=== PATIENT | female | born 1995 | race Caucasian/White ===

== ENCOUNTER 2019-12-14 07:01 | Inpatient (IN) | payer MEDICAID ==
[~2019-12-14] VITALS: Ht 177.8 cm; Wt 104.3 kg
[2019-12-14] MEDS ORDERED: DEXT 5%/LACTATED RINGERS 1,000 ML IV SCH (11:47)
[2019-12-14] MEDS ORDERED: DEXT 5%/LR + PITOCIN 20UNITS/L 1,000 ML IV SCH ×2 (11:47→22:49)
[2019-12-14] MEDS ORDERED: MINERAL OIL 30ML BOTTLE PO NR (12:00)
[2019-12-14] MEDS ORDERED: PENICILLIN G POTASSIUM 5 MMU in DEXT 5% WATER 100 ML IV NR (12:00)
[2019-12-14] MEDS ORDERED: NALOXONE HCL 0.4 MG/ML 1ML VIAL IM PRN (12:00)
[2019-12-14] MEDS ORDERED: RHO(D) IMMUNE GLOBULIN 300 MCG/SYR IM NR (12:00)
[2019-12-14] MEDS ORDERED: METHYLERGONOVINE MALEATE 0.2 MG/ML IM PRN (12:00)
[2019-12-14] MEDS ORDERED: LIDOCAINE HCL 1% 20ML VIAL (Pyxis) INJ INFIL SCH (12:00)
[2019-12-14] MEDS ORDERED: BUTORPHANOL TARTRATE 2 MG/ML VIAL IV PRN (12:00)
[2019-12-14 12:24] LABS: BASOPHILS % 0.5 % (0.0-2.0); HEMATOCRIT. 31.3 % (36.0-48.0); HEMOGLOBIN. 10.6 g/dL (12.0-16.0); LYMPHOCYTES % 20.6 % (20.0-50.0); MEAN CORPUSCULAR HEMOGLOBIN 27.6 pg (28.0-32.0); MEAN CORPUSCULAR VOLUME 81.3 fL (81.0-99.0); MEAN PLATELET VOLUME 8.6 fl (7.4-10.4); MONOCYTES % 6.3 % (2.0-8.0); NEUTROPHILS % 70.6 % (40.0-76.0); PLATELET 262 x1000/uL (130-400); RED BLOOD CELL COUNT 3.85 mill/uL (4.2-5.4); RED CELL DISTRIBUTION WIDTH 18.7 % (11.6-14.6)
[2019-12-14 12:26] LABS: CLARITY URINE CLEAR (CLEAR); COLOR URINE YELLOW (YELLOW); KETONES URINE NEGATIVE (NEGATIVE); LEUKOCYTE ESTERASE URINE 1+ (NEGATIVE); NITRITE URINE NEGATIVE (NEGATIVE); OCCULT BLOOD URINE NEGATIVE (NEGATIVE); PROTEIN URINE NEGATIVE (NEGATIVE); SPECIFIC GRAVITY URINE 1.008 (1.005-1.030); UROBILINOGEN URINE 0.2 E.U./dL (0.2-1.0)
[2019-12-14 12:35] LABS: INR 0.9; PARTIAL THROMBOPLASTIN TIME 26.2 sec (23.4-31.0); PROTHROMBIN TIME 9.4 sec (9.6-11.0)
[2019-12-14 12:46] LABS: METHADONE URINE SCREEN NEGATIVE (NEGATIVE); OPIATES URINE SCREEN NEGATIVE (NEGATIVE); PHENCYCLIDINE URINE SCREEN NEGATIVE (NEGATIVE)
[2019-12-14 12:47] LABS: *AMPHETAMINES SCREEN URINE NEGATIVE (NEGATIVE); *BARBITURATES SCREEN URINE NEGATIVE (NEGATIVE); *COCAINE SCREEN URINE NEGATIVE (NEGATIVE); CANNABINOID URINE SCREEN NEGATIVE (NEGATIVE)
[2019-12-14 12:49] LABS: *BENZODIAZEPINES SCREEN URINE NEGATIVE (NEGATIVE)
[2019-12-14 13:20] LABS: HEPATITIS B SURFACE ANTIGEN NEGATIVE
[2019-12-14] MEDS ORDERED: PENICILLIN G POTASSIUM 2.5 MMU in DEXTROSE 5% WATER 50 ML IV SCH (16:00)
[2019-12-14] MEDS ORDERED: ROPIVACAINE HCL/PF 0.2% (2MG/ML) EPID 200ML EPI NR (16:45)
[2019-12-14] MEDS ORDERED: FENTANYL CITRATE/PF 50MCG/ML 2ML VIAL ONE (17:33)
[2019-12-14] MEDS ORDERED: EPHEDRINE SULFATE 50MG/ML VIAL ONE (17:34)
[2019-12-14] MEDS ORDERED: BUPIVACAINE HCL/PF 0.25% (2.5MG/ML) 10ML ONE (17:34)
[2019-12-14] MEDS ORDERED: SODIUM CHLORIDE 0.9% 10ML VIAL ONE (17:34)
[2019-12-14] MEDS ORDERED: IBUPROFEN 400MG TABLET PO PRN (23:00)
[2019-12-14] MEDS ORDERED: LANOLIN OINT 7GM TUBE TOP PRN (23:00)
[2019-12-14] MEDS ORDERED: IBUPROFEN 800MG TABLET PO PRN (23:00)
[2019-12-14] MEDS ORDERED: RHO(D) IMMUNE GLOBULIN 300 MCG/SYR IM PRN (23:00)
[2019-12-14] MEDS ORDERED: DIPHENHYDRAMINE 25MG CAPSULE PO PRN (23:00)
[2019-12-15 00:12] VITALS: BP 120/42
[2019-12-15 00:34] VITALS: BP 124/43
[2019-12-15 05:20] VITALS: BP 120/63
[2019-12-15 07:25] LABS: BASOPHILS % 0.5 % (0.0-2.0); EOSINOPHILS % 1.1 % (0.0-5.0); HEMATOCRIT. 32.1 % (36.0-48.0); HEMOGLOBIN. 10.6 g/dL (12.0-16.0); LYMPHOCYTES % 17.9 % (20.0-50.0); MEAN CORPUSCULAR HEMOGLOBIN 27.3 pg (28.0-32.0); MEAN CORPUSCULAR VOLUME 82.3 fL (81.0-99.0); MEAN PLATELET VOLUME 8.7 fl (7.4-10.4); MONOCYTES % 8.5 % (2.0-8.0); PLATELET 239 x1000/uL (130-400); RED CELL DISTRIBUTION WIDTH 18.5 % (11.6-14.6)
[2019-12-15 07:43] VITALS: BP 127/72
[2019-12-15] MEDS: PRENATAL VIT/FE FUMARATE/FA TABLET PO SCH (09:09)
[2019-12-15] MEDS ORDERED: METHYLERGONOVINE MALEATE 0.2 MG/ML IM PRN (12:00)
[2019-12-15 16:08] VITALS: BP 122/64
[2019-12-15 20:00] VITALS: BP 126/78
[2019-12-16 04:00] VITALS: BP 134/60
[2019-12-16 08:00] VITALS: BP 131/59
[2019-12-16] MEDS: PRENATAL VIT/FE FUMARATE/FA TABLET PO SCH (08:36)
== END 2019-12-16 12:46 | disposition home or self-care (01) | DRG 560 ==
LOC: 8 EST LDRP 07:01 → INTOOBSV 07:01 → OBSVTOIN 07:01 → 8 EST LDRP 07:36 → 8EST 23:47
PROVIDERS: ADMIT Obstetrics & Gynecology; ATTEND Obstetrics & Gynecology
PROC: 10E0XZZ Delivery of Products of Conception, External Approach (ICD-10-PCS; principal; 2019-12-14)
PROC: 3E0R3BZ Introduction of Anesthetic Agent into Spinal Canal, Percutaneous Approach (ICD-10-PCS; 2019-12-14)
PROC: 00HU33Z Insertion of Infusion Device into Spinal Canal, Percutaneous Approach (ICD-10-PCS; 2019-12-14)
PROC: 3E033VJ Introduction of Other Hormone into Peripheral Vein, Percutaneous Approach (ICD-10-PCS; 2019-12-14)
PROC: 10907ZC Drainage of Amniotic Fluid, Therapeutic from Products of Conception, Via Natural or Artificial Opening (ICD-10-PCS; 2019-12-14)
DX: O48.0 Post-term pregnancy (principal); O34.211 Maternal care for low transverse scar from previous cesarean delivery; O99.824 Streptococcus B carrier state complicating childbirth; Z37.0 Single live birth; Z3A.41 41 weeks gestation of pregnancy
CPT/HCPCS: 36415; 76805; 76818; 80305; 81003; 85025; 86592; 86703; 86762; 86850; 86900; 87340; 99281; J0595; J2540; J2590; J2795; J3010; J3490; J7060

== ENCOUNTER 2023-10-13 22:43 | Emergency (ER) | payer MEDICAID ==
[~2023-10-13] VITALS: Ht 177.8 cm; Wt 90.7 kg
[2023-10-13 23:13] VITALS: TEMP 98.9; O2SAT 100
[2023-10-14 01:01] LABS: BASOPHILS % 1.1 % (0.0-2.0); EOSINOPHILS % 2.1 % (0.0-5.0); HEMATOCRIT. 23.7 % (36.0-48.0); LYMPHOCYTES % 46.4 % (20.0-50.0); MEAN CORPUSCULAR HEMOGLOBIN 17.7 pg (28.0-32.0); MEAN CORPUSCULAR HGB CONC 28.9 g/dL (31.0-37.0); MEAN CORPUSCULAR VOLUME 61.2 fL (81.0-99.0); MEAN PLATELET VOLUME 7.2 fl (7.4-10.4); MONOCYTES % 10.2 % (2.0-8.0); NEUTROPHILS % 40.2 % (40.0-76.0); PLATELET 405 x1000/uL (130-400); RED BLOOD CELL COUNT 3.87 mill/uL (4.2-5.4); RED CELL DISTRIBUTION WIDTH 18.9 % (11.6-14.6); WHITE BLOOD COUNT 6.2 x1000/uL (4.5-11.0)
[2023-10-14 01:13] LABS: DIFFERENTIAL COMMENT 1
[2023-10-14 01:14] LABS: ADD RBC MORPHOLOGY YES; HEMOGLOBIN. 6.8 g/dL (12.0-16.0)
[2023-10-14 01:35] LABS: ALANINE AMINOTRANSFERASE 28 IU/L (10-49); ALBUMIN 4.2 g/dL (3.2-4.8); ASPARTATE AMINOTRANSFERASE 26 IU/L (<34); BILIRUBIN TOTAL 0.3 mg/dL (0.1-1.0); CALCIUM 9.2 mg/dL (8.7-10.4); CARBON DIOXIDE 27 mEq/L (21-32); CHLORIDE 107 mEq/L (98-107); CREATININE 0.7 mg/dL (0.6-1.0); GLUCOSE 98 mg/dL (70-105); POTASSIUM 4.1 mEq/L (3.5-5.1); PROTEIN TOTAL 7.4 g/dL (6.0-8.3); SODIUM 140 mEq/L (136-145); UREA NITROGEN BLOOD 13 mg/dL (9-23)
[2023-10-14 01:43] LABS: HCG SCREEN NEGATIVE
[2023-10-14 01:45] VITALS: BP 147/74; PULSE 109; RESP 16
[2023-10-14] MEDS ORDERED: OXYCODONE HCL/ACETAMINOPHEN 5/325MG TABLET PO ONE (01:45)
[2023-10-14 01:52] LABS: PLATELET ESTIMATE NORMAL
[2023-10-14 01:53] LABS: HYPOCHROMASIA 2+; MICROCYTOSIS 2+
== END 2023-10-14 09:33 | disposition left against medical advice (07) ==
LOC: ER 22:43 → CANBEDREQ 10-15 05:38
DX: D64.9 Anemia, unspecified (principal); R51.9 Headache, unspecified
CPT/HCPCS: 36415; 80053; 81025; 84703; 85025; 85044; 99283

== ENCOUNTER 2023-10-16 02:34 | Emergency (ER) | payer MEDICAID ==
[~2023-10-16] VITALS: Ht 177.8 cm; Wt 91.0 kg
[2023-10-16 02:46] VITALS: BP 123/63; PULSE 94; RESP 18; TEMP 97.7; O2SAT 100
[2023-10-18] MEDS ORDERED: DOCU-150 PO (11:15)
[2023-10-18] MEDS ORDERED: FERR-63 PO (11:15)
== END 2023-10-16 10:10 | disposition left against medical advice (07) ==
LOC: ER 02:34
DX: D64.9 Anemia, unspecified (principal); Z53.21 Procedure and treatment not carried out due to patient leaving prior to being seen by health care provider
CPT/HCPCS: 99281

== ENCOUNTER 2024-02-09 04:32 | Emergency (ER) | payer MEDICAID ==
[~2024-02-09 04:32] MED LIST: DOCU-150 PO; FERR-63 PO
[2024-02-09 04:36] VITALS: PULSE 100; TEMP 100
== END 2024-02-09 06:05 | disposition left against medical advice (07) ==
LOC: ER 04:32
DX: R10.2 Pelvic and perineal pain (principal); Z53.21 Procedure and treatment not carried out due to patient leaving prior to being seen by health care provider